=== PATIENT | female | born 1965 | race Caucasian/White ===

== ENCOUNTER 2022-10-21 13:50 | Outpatient (CLI) | payer BC, SELFPAY ==
--- NOTE | ~2022-10-21 | US_ITS ---
EXAMINATION: US thyroid DATE: 10/21/2022 14:37 INDICATION: Nontoxic single thyroid nodule TECHNIQUE: Multiple ultrasound images of the thyroid were obtained. COMPARISON: None. FINDINGS: The right thyroid lobe measures 6.0 x 1.9 x 2.8 cm. The left thyroid lobe measures 6.0 x 2.3 x 2.7 c m. There are multiple bilateral thyroid nodules. The 3 largest in the right thyroid are all wider osorio n tall, predominantly solid, hypoechoic with smooth or ill-defined defined margins and without echoge ventura foci (TI-RADS 4, moderately suspicious , FNA if >=1.5 cm, annual followup is >=1 cm). From crania l to caudal these measure 1.1 cm, 1.8 cm and 2.5 cm . On the left there is a 1.8 cm solid wider than tall hypoechoic nodule with smooth and ill-defined margins and without echogenic foci in the deep lef t thyroid lobe, also TI RADS 4. The largest is a 3.5 cm spongiform TI RADS 1 nodule. Finally there is a 1.3 cm mixed cystic and hypoechoic solid nodule at the inferior left thyroid which is wider than t all with smooth margins and with single punctate echogenic focus, also TI RADS 4. The most concerning nodule is a 1.2 cm solid very hypoechoic nodule with central punctate echogenic focus at the thyroid isthmus (TI-RADS 5, highly suspicious , FNA if >=1.0 cm, annual followup is >0.5 cm). There are joann ral additional less concerning subcentimeter nodules scattered throughout the thyroid. IMPRESSION: 1. Multinodular goiter. Would recommend biopsy of the 1.2 cm TI RADS 5 nodule at the isthmus and of t he largest 2.5 cm TI RADS 4 right thyroid nodule. Reviewed, dictated and finalized at location L. AULIC BARKER OPERATOR IMPRESSION: 1. Multinodular goiter. Would recommend biopsy of the 1.2 cm TI RADS 5 nodule a t the isthmus and of the largest 2.5 cm TI RADS 4 right thyroid nodule.
== END 2022-10-21 13:51 | disposition home or self-care (01) ==
PROVIDERS: PCP Family Medicine; Visit Provider Family Medicine
DX: E04.2 Nontoxic multinodular goiter (principal)
CPT/HCPCS: 76536

== ENCOUNTER 2023-04-27 15:33 | Outpatient (CLI) | payer BC, SELFPAY ==
--- NOTE | ~2023-04-27 | XR_ITS ---
EXAMINATION: XR ribs LT 2V w CXR 2V DATE: 04/27/2023 15:53 INDICATION: Pleurodynia with left-sided chest wall pain post fall TECHNIQUE: PA and lateral views of the chest and 3 views of the left ribs were obtained. COMPARISON: None FINDINGS: No rib fractures identified. No pneumothorax. No focal infiltrates, pleural effusion or pulmonary thomas ma. Cardiomediastinal silhouette is normal. Mild thoracic spondylosis. Mild lumbar dextrocurvature. IMPRESSION: 1. No rib fracture or acute cardiopulmonary disease. Reviewed, dictated and finalized at location B.
== END 2023-04-27 15:34 | disposition home or self-care (01) ==
PROVIDERS: PCP Family Medicine; Visit Provider Physician Assistant
DX: R07.81 Pleurodynia (principal); Z91.81 History of falling
CPT/HCPCS: 71046; 71100

== ENCOUNTER 2024-08-30 08:18 | Outpatient (CLI) | payer BC, SELFPAY ==
--- NOTE | ~2024-08-30 | XR_ITS ---
EXAMINATION: XR foot RT min 3V DATE: 08/30/2024 08:46 INDICATION: Right foot pain post injury TECHNIQUE: Dorsoplantar, two oblique and lateral views of the right foot were obtained. COMPARISON: 07/21/2011 FINDINGS: Bone alignment is normal. No fracture. 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 There is 3 mm incr eased separation of the proximal and distal moieties of a bipartite first metatarsal fibular sesamoid when compared with the prior study. Soft tissues are unremarkable. IMPRESSION: 1. Increased separation of the proximal and distal moieties of a bipartite first metatarsal fibular s esamoid when compared with the prior study which suggests either laxity or injury to the capsuloligam entous-sesamoid complex. Reviewed, dictated and finalized at location A. E MANAGEMENT ENGINEER IMPRESSION: 1. Increased separation of the proximal and distal moieties of a bipartite firs t metatarsal fibular sesamoid when compared with the prior study which suggests either laxity or injury to the capsuloligamentous-sesamoid complex.
== END 2024-08-30 08:19 | disposition home or self-care (01) ==
PROVIDERS: PCP Family Medicine; Visit Provider Physician Assistant
DX: M79.671 Pain in right foot (principal); M79.674 Pain in right toe(s); S99.921A Unspecified injury of right foot, initial encounter; X58.XXXA Exposure to other specified factors, initial encounter
CPT/HCPCS: 73630